=== PATIENT | male | born 1975 | race Caucasian/White ===

== ENCOUNTER 2022-01-28 07:02 | Emergency (ER) | payer OTHER, BC ==
[2022-01-28 07:17] VITALS: PULSE 79; TEMP 98.6
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
== END 2022-01-28 08:09 | disposition home or self-care (01) ==
LOC: EC 07:02
DX: Z02.83 Encounter for blood-alcohol and blood-drug test (principal); F17.200 Nicotine dependence, unspecified, uncomplicated
CPT/HCPCS: 99282; 99283

== ENCOUNTER → 2022-10-29 | Outpatient (CLI) | payer BC ==
--- NOTE | 2022-10-31 12:38 | CT ---
EXAMINATION TYPE: CT abdomen pelvis w con DATE OF EXAM: 10/29/2022 COMPARISON: NONE HISTORY: 47-year-old male R19.00 umbilical hernia TECHNIQUE: Contiguous axial scanning of the abdomen and pelvis following administration of 100 ml Iso edward 300 IV contrast. Delayed images through the kidneys and coronal/sagittal reconstructions perform ed. CT DLP: 1387 mGycm Automated exposure control for dose reduction was used. FINDINGS: The heart is normal size without pericardial effusion. Lung bases clear without pleural eff usion. A few benign hepatic cysts measuring up to 1.7 cm.r portal venous system is patent. No biliary ductal dilatation. There is a tiny 1.3 cm diverticulum of the second portion of the duodenum projecting int o the pancreatic head region. Gallbladder upper limits of normal in distention of 3.8 cm. No surrounding inflammation. Adrenal glands, kidneys, spleen with hilar splenule, and pancreas within normal limits. No dilated small bowel, free fluid, or free air. No mesenteric or retroperitoneal lymphadenopathy. Oral contrast has faintly progressed into the proximal sigmoid colon. There is mild overall stool bur den. No pericolonic inflammatory change. There is a small fatty umbilical hernia measuring 1.8 cm wide. Large fat-containing 7.5 cm wide and 8.6 cm craniocaudal. This extends through a 3.1 cm wide abdomina l wall defect. There is fat stranding in the hernia sac and additional more confluent fat stranding w ithin the intra-abdominal fat just deep to the hernia. Bladder urine distended. Small pelvic phleboliths. No abnormal fluid collection in the pelvic lymphad enopathy. Mild to moderate multilevel spondylotic. Moderate to advanced multilevel facet arthropathy. IMPRESSION: 1. SMALL FATTY PERIUMBILICAL HERNIA MEASURING 1.8 CM WIDE. 2. HOWEVER, THERE IS A LARGER SUPRAUMBILICAL HERNIA MEASURING 8.6 X 7.5 CM CONTAINING OMENTAL FAT. TH IS EXTENDS THROUGH A 3.1 CM ABDOMINAL WALL DEFECT. THE FAT STRANDING BOTH WITHIN THE HERNIA SAC AND D EEPER IN THE ADJACENT INTRA-ABDOMINAL FAT SUGGESTS NONSPECIFIC INFLAMMATION. POSSIBLY RELATED TO [place]UST[place] IA INCARCERATION.
== END | disposition home or self-care (01) ==
LOC: RADCTMAIN 13:54
PROVIDERS: ATTEND Family Medicine
DX: K42.9 Umbilical hernia without obstruction or gangrene (principal)
CPT/HCPCS: 74177; Q9967

== ENCOUNTER → 2023-05-06 | Outpatient (CLI) | payer BC | END | disposition home or self-care (01) | LOC: LABWHC1 12:29 | PROVIDERS: ATTEND Surgery Plastic and Reconstructive Surgery | DX: K43.9 Ventral hernia without obstruction or gangrene (principal) | CPT/HCPCS: 36415; 93005 ==

== ENCOUNTER 2023-05-27 07:05 | Day surgery (SDC) | payer BC ==
[2023-05-23 11:08] VITALS: BMI 34.0
--- NOTE | 2023-05-27 06:09 | P.GSHP ---
History of Present Illness H&P Date: 05/27/23 CHIEF COMPLAINT: Ventral hernia HISTORY OF PRESENT ILLNESS: The patient is a 48-year-old male presents with a history of swelling and pain along the abdomen from a hernia of the abdomen. Symptoms have been present for over 6 months. Now he presents for surgical intervention. PAST MEDICAL HISTORY: Please see list. PAST SURGICAL HISTORY: Please see list. MEDICATIONS: Please see list. ALLERGIES: Please see list. SOCIAL HISTORY: No illicit drug use FAMILY HISTORY: No reports of Crohn disease or ulcerative colitis. REVIEW OF ORGAN SYSTEMS: CONSTITUTIONAL: Obesity, BMI 34.0. HEENT: Denies any trouble with vision, hearing or nosebleeds. No difficulty swallowing. LYMPHATIC: The patient denies any lumps and bumps around the neck. ENDOCRINE: Denies any thyroid disorders. Denies any blood sugar glucose intolerance. RESPIRATORY: Has chronic obstructive pulmonary disease. Has asthma. CARDIOVASCULAR: Denies any chest pain, palpitations, or recent heart attacks. GASTROINTESTINAL: Denies heart burn, constipation or bright red blood per rectum. GENITOURINARY: Denies any blood in urine or increased urinary frequency. MUSCULOSKELETAL: Denies any back pain, stiffness, joint arthritis. NEUROLOGIC: Denies any numbness or tingling along the distal extremities. No seizure disorders or headaches. PSYCHIATRIC: Denies depression or suidical ideation. HEMATOLOGIC: Denies any abnormal bleeding or bruising. BREASTS: Denies any breast lumps, pain or nipple discharge. PHYSICAL EXAM: GENERAL: Well-developed pleasant male in no acute distress. HEENT: No scleral icterus. Extraocular movements grossly intact. Moist buccal mucosa. NECK: Supple without lymphadenopathy. CHEST: Unlabored respirations. Equal bilateral excursions. CARDIOVASCULAR: Regular rate and rhythm. Distal 2+ pulses. ABDOMEN: Soft, nondistended. Palpable defect of the abdomen, has umbilical hernia and epigastric ventral hernia over 8 cm. No peritoneal signs. MUSCULOSKELETAL: No clubbing, cyanosis, or edema. SKIN: Well perfused. PSYCH: Alert and oriented to self, place and time EKG: Reviewed with RVR conduction delay. Borderline. Will need repeat. STUDIES: CT of the abdomen pelvis independently reviewed from October 2022 demonstrates incarcerated fat-containing hernia of the epigastrium over 8 cm and incarcerated umbilical hernia. Presence of diverticulosis. This is my independent interpretation. ASSESSMENT: 1. Ventral hernia, over 8 cm 2. Umbilical hernia over 2 cm PLAN: 1. Recommend proceeding with robotic ventral hernia repair with mesh. 2. Benefits and risks of surgical intervention was discussed including possibility of open technique. 3. DVT prophylaxis. 4. Antibiotic prophylaxis. 5. Non narcotic pain management including abdominal wall block described 6. Blood sugar glucose described. 7. Weight loss management described. 8. CBC and CMP on day of surgery including repeat EKG due to borderline findings. 9. Patient reports tobacco cessation Past Medical History Past Medical History: COPD, GERD/Reflux, Sleep Apnea/CPAP/BIPAP Additional Past Medical History / Comment(s): "Beginnings of COPD." Acid reflux resolved. "Slight sleep apnea", no device use at this time. History of Any Multi-Drug Resistant Organisms: None Reported Past Surgical History: Appendectomy Additional Past Surgical History / Comment(s): [place] teeth extracted. Past Anesthesia/Blood Transfusion Reactions: No Reported Reaction Past Psychological History: Depression Additional Psychological History / Comment(s): Hx depression 10 yrs ago, none since. Smoking Status: Former smoker Past Alcohol Use History: Rare Additional Past Alcohol Use History / Comment(s): Quit smoking one month ago, smoked off and on for 30 yrs. Past Drug Use History: None Reported - Past Family History Mother Family Medical History: COPD Additional Family Medical History / Comment(s): Emphysema. Medications and Allergies Home Medications Medication Instructions Recorded Confirmed Type Albuterol Inhaler [Ventolin Hfa 1 - 2 puff INHALATION Q6H PRN 05/23/23 05/23/23 History Inhaler] Allergies Allergy/AdvReac Type Severity Reaction Status Date / Time No Known Allergies Allergy Verified 05/23/23 10:42
[2023-05-27] MEDS ORDERED: MIDAZOLAM 2 MG/2 ML VIAL IV PRN (07:27)
[2023-05-27] MEDS: LACTATED RINGERS 1,000 ML IV SCH (07:51)
[2023-05-27 08:14] VITALS: TEMP 97.5
[2023-05-27 08:40] LABS: Basophils # (A) 0.1 k/uL (0-0.2); Basophils % (A) 1 %; Eosinophils # (A) 0.4 k/uL (0-0.7); Eosinophils % (A) 4 %; HCT 43.9 % (39.0-53.0); HGB 14.9 gm/dL (13.0-17.5); Lymphocytes # (A) 2.3 k/uL (1.0-4.8); Lymphocytes % (A) 26 %; MCH 31.8 pg (25.0-35.0); MCV 93.8 fL (80.0-100.0); Mean Platelet Volume 8.2; Monocytes # (A) 0.8 k/uL (0-1.0); Monocytes % (A) 9 %; Neutrophils # (A) 5.1 k/uL (1.3-7.7); Neutrophils % (A) 57 %; Platelet Count 204 k/uL (150-450); RBC 4.68 m/uL (4.30-5.90); RDW 13.1 % (11.5-15.5); WBC 8.9 k/uL (3.8-10.6)
[2023-05-27 08:54] LABS: ALT 45 U/L (4-49); AST 31 U/L (17-59); African American GFR (CKD) >90 (>60 ml/min/1.73 sqM); Albumin 3.7 g/dL (3.5-5.0); Alkaline Phosphatase 63 U/L (38-126); Anion Gap 6 mmol/L; Blood Urea Nitrogen 15 mg/dL (9-20); Calcium 8.6 mg/dL (8.4-10.2); Carbon Dioxide 22 mmol/L (22-30); Chloride 114 mmol/L (98-107); Glucose 110 mg/dL (74-99); Non-African American GFR(CKD) >90 (>60 ml/min/1.73 sqM); Potassium 4.2 mmol/L (3.5-5.1); Sodium 142 mmol/L (137-145); Total Bilirubin 0.5 mg/dL (0.2-1.3); Total Protein 6.4 g/dL (6.3-8.2)
[2023-05-27] MEDS: MIDAZOLAM 2 MG/2 ML VIAL IVP ONE (08:57)
[2023-05-27] MEDS: fentaNYL (PF) 50 MCG/1 ML VIAL IVP ONE (08:57)
[2023-05-27] MEDS: ONDANSETRON 4 MG/2 ML VIAL IVP PRN (09:13)
[2023-05-27] MEDS: HEPARIN SODIUM,PORCINE 5,000 UNIT/ML 1 ML VIAL SQ PRN (09:13)
[2023-05-27] MEDS: ACETAMINOPHEN TAB 500 MG TAB PO PRN (09:13)
[2023-05-27] MEDS: MELOXICAM 7.5 MG TAB PO PRN (09:13)
--- NOTE | 2023-05-27 09:19 | P.ANPRN ---
Procedure Note - Anesthesia - Nerve Block Performed Bilateral Erector Spinae Single Time Out Performed: Yes Date of Procedure: 05/27/23 Procedure Start Time: 08:56 Procedure Stop Time: 09:03 Location of Patient: PreOp Indication: Acute Post-Operative Pain, Requested by Surgeon Sedation Type: Sedate with meaningful contact maintained Preparation: Sterile Prep Position: Prone Needle Types: Pajunk Needle Gauge: 21 Ultrasound used to visualize needle placement: Yes Ultrasound used to observe medication spread: Yes Injectate: 0.5% Ropivacaine (see comment for volume) (Ropivacaine 0.5% 20 ml + 10 ml NS + 4 mg Dexamethasone, per side) Blood Aspirated: No Pain Paresthesia on Injection Noted: No Resistance on Injection: Normal Image Stored and Saved: Yes Events: Uneventful and Well Tolerated
[2023-05-27] MEDS ORDERED: ROPIVACAINE 5 MG/ML 30 ML VIAL ONE (10:25)
[2023-05-27] MEDS ORDERED: fentaNYL (PF) 50 MCG/ML 2 ML AMP ONE (10:25)
[2023-05-27] MEDS ORDERED: KETOROLAC 15 MG/ML 1 ML VIAL ONE (10:25)
[2023-05-27] MEDS ORDERED: GLYCOPYRROLATE 0.2 MG/ML 2 ML VIAL ONE (10:25)
[2023-05-27] MEDS ORDERED: SODIUM CHLORIDE 0.9% (PF) 10 ML VIAL ONE (10:25)
[2023-05-27] MEDS ORDERED: ROCURONIUM 10 MG/ML (5 ML VIAL) IV ONE (10:25)
[2023-05-27] MEDS ORDERED: LIDOCAINE 1% INJ 10MG/ML (20 ML MDV) ONE (10:25)
[2023-05-27] MEDS ORDERED: NEOSTIGMINE 1 MG/ML 10 ML VIAL ONE (10:25)
[2023-05-27] MEDS ORDERED: PROPOFOL 10 MG/ML 20 ML VIAL IV ONE (10:25)
[2023-05-27] MEDS ORDERED: DEXAMETHASONE SOD PHOSPHATE 4 MG/ML 1 ML VIAL ONE (10:25)
[2023-05-27] MEDS ORDERED: SUCCINYLCHOLINE CHLORIDE 200 MG/10 ML VIAL IV ONE (10:25)
[2023-05-27] MEDS ORDERED: MIDAZOLAM 2 MG/2 ML VIAL ONE (10:25)
[2023-05-27] MEDS: LIDOCAINE 2%-EPI 1:100,000 20 ML VIAL SQ ONE (10:53)
--- NOTE | 2023-05-27 12:09 | P.OP ---
Date of Procedure: 05/27/23 Description of Procedure: SURGEON: POPPY ROMERO MD PREOPERATIVE DIAGNOSES: 1. Initial epigastric ventral hernia with incarceration 2. Gastroesophageal reflux disease 3. Morbid obesity due to excess calories, BMI 35.8 4. Tobacco abuse disorder in remission 5. Obstructive sleep apnea POSTOPERATIVE DIAGNOSES: 1. Initial epigastric ventral hernia with incarceration, 8-cm 2. Gastroesophageal reflux disease 3. Morbid obesity due to excess calories, BMI 35.8 4. Tobacco abuse disorder in remission 5. Obstructive sleep apnea OPERATION: 1. Robotic-assisted da Margaret Xi laparoscopic repair of initial incarcerated epigastric ventral hernia with mesh, ventralight ST mesh 11.4 cm Anesthesia: GETA, regional, local Estimated Blood Loss (ml): 5 Pathology: None COMPLICATIONS: None. Operative Findings: 1. Upper midline epigastric ventral hernia defect 3.5 x 2.5 cm 2. Fascia repaired using #1 V-lock suture INDICATIONS: The patient is a 48-year-old male who presents with a personal history of abdominal wall hernia. Surgical intervention with laparoscopic versus robotic and open techniques were reviewed. Placement of mesh was also reviewed. Benefits and risks were thoroughly described. Informed consent was obtained. DESCRIPTION OF PROCEDURE: The patient was brought into the operating room and laid in supine position. After general induction, the abdomen had been prepped and draped in standard sterile fashion. [place] draping was also placed. Prior to incision, a timeout protocol was confirmed with surgical team regarding the patient's name including procedures to be performed. The robot was primed prior to the procedure. A field block using local anesthetic was placed along hernia site including the proposed port sites. Initial incision was made with an #11 blade along the left upper quadrant. A 0 degree 5 mm laparoscopic trocar entry was performed and insufflated. Three 8 mm ports were placed along the left lateral abdominal wall under direct localization after exchanging the 5-mm for an 8 mm port. Placements of the ports were 15 cm from the target anatomy and 10 cm apart. An accessory 12 mm port was placed at the right upper quadrant for exchange of mesh including sutures. The [employer] robot was previously primed, prepped and draped then docked from the right side of the patient onto the left side of the patient. I then sat at the robot [employer] console where working arms of the robot including Bovie cautery connected to robotic scissors, needle racecar driver, and graspers placed by the catering assistant. Incarcerated omental contents were found along the upper midline defect. The defect was reduced: Upper midline defect 3.5 x 2.5 cm. The incarcerated contents were reduced as the peritoneal fat was cleaned from the abdominal wall. Next, hemostasis was checked with cautery. The hernia defects were oversewn using #1 nonabsorbable V-lock suture with fascial imbrication x 3. Next, ventralight ST mesh 11.4 cm was placed with the rough side towards the abdominal wall as to cover the epigastri defect. 2-0 VLOC green sutures were used to fixate the mesh. A final endoscopic imaging was obtained. All instruments and pneumoperitoneum were evacuated from the abdominal cavity. The da Margaret Xi robot was undocked from the patient. I re-scrubbed into the case for closure of incisions. The fascia of the 12-mm port was probed and less than 8-mm in size. The incisions were reapproximated using 4-0 Monocryl in an interrupted subcuticular fashion. Liquid glue was applied to the skin after cleansing the skin with normal saline and dilute hydrogen peroxide. An abdominal binder was placed. At the end of the procedure, needle, sponge, and instrument count had been verified correct by surgical nurse practitioner. The patient was taken to the postanesthesia care unit in stable condition. Plan - Discharge Summary Discharge Rx Participant: Yes New Discharge Prescriptions: New Cyclobenzaprine [Flexeril] 10 mg PO TID #30 tab Simethicone [Gas-X] 125 mg PO AC-TID PRN #20 capsule PRN Reason: Pain Ibuprofen [Motrin] 600 mg PO Q8HR PRN #30 tab PRN Reason: Pain Acetaminophen Tab [Tylenol Tab] 1,000 mg PO Q6HR PRN #30 tablet PRN Reason: Pain Continue Albuterol Inhaler [Ventolin Hfa Inhaler] 1 - 2 puff INHALATION Q6H PRN PRN Reason: Shortness Of Breath Discharge Medication List Albuterol Inhaler [Ventolin Hfa Inhaler] 1 - 2 puff INHALATION Q6H PRN 05/23/23 [History] Acetaminophen Tab [Tylenol Tab] 1,000 mg PO Q6HR PRN #30 tablet 03/01/24 [Rx] Cyclobenzaprine [Flexeril] 10 mg PO TID #30 tab 05/27/23 [Rx] Ibuprofen [Motrin] 600 mg PO Q8HR PRN #30 tab 05/27/23 [Rx] Simethicone [Gas-X] 125 mg PO AC-TID PRN #20 capsule 05/27/23 [Rx] Follow up Appointment(s)/Referral(s): Poppy Romero MD [STAFF PHYSICIAN] - 05/31/23 10:30 am Patient Instructions/Handouts: Ventral Hernia Repair (GEN) Activity/Diet/Wound Care/Special Instructions: HERNIA No lifting for 4 pounds in 4 weeks, June 23 Using antibacterial soap. July shower. No bathtub soaks for 2 weeks, June 02 Wear abdominal binder daily for comfort except for showering. Use ice along incisions for today to prevent swelling. Use Tylenol, simethicone and ibuprofen or Aleve scheduled for the next 24-48 hours for best pain relief. Discharge Disposition: HOME SELF-CARE
[2023-05-27] MEDS: HYDROmorphone 0.5 MG/0.5 ML SYRINGE IVP PRN (12:27)
[2023-05-27] MEDS: IBUPROFEN 600 MG TAB PO ONE (14:02)
[2023-05-27] MEDS: CYCLOBENZAPRINE 10 MG TAB PO STA (14:20)
[2023-05-27 14:44] VITALS: RESP 18
[2023-05-27 15:22] VITALS: BP 110/70; PULSE 85
== END 2023-05-27 15:24 | disposition home or self-care (01) ==
LOC: OR 07:05
PROVIDERS: ATTEND Surgery Plastic and Reconstructive Surgery
DX: K43.6 Other and unspecified ventral hernia with obstruction, without gangrene (principal); K42.9 Umbilical hernia without obstruction or gangrene; K21.9 Gastro-esophageal reflux disease without esophagitis; J44.9 Chronic obstructive pulmonary disease, unspecified; G47.33 Obstructive sleep apnea (adult) (pediatric); E66.01 Morbid (severe) obesity due to excess calories; Z68.35 Body mass index [BMI] 35.0-35.9, adult; Z87.891 Personal history of nicotine dependence; Z90.49 Acquired absence of other specified parts of digestive tract
CPT/HCPCS: 49596; 64999; 80053; 85025; C1781; J2250; J0330; J1644; J1100; J2710; J0690; J2405; J2001; J3010 ×2; J2795; J1885; J2704; J1170